=== PATIENT | male | born 1965 | race Caucasian/White ===

== ENCOUNTER 2017-01-24 22:32 | Emergency (ER) | payer OTHER ==
[2017-01-24 22:51] VITALS: BMI 25.4
--- NOTE | 2017-01-25 00:35 | DR.GENAD ---
HPI - PCP Primary Care Physician: LESLI - Complaint/Symptoms Chief Complaint:: BEEN WORKING OUT IN [place] ALL DAY CAME IN HURTING IN UPPER LEFT ABD. AND BACK. CAN'T HARDLY BREATHE. 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 UNSTEADY WHEN STANDING AND WALKING Self Treatment fo Chief Complaint: 2 ALEVE AND 2 IBUPROFEN AT 5PM - Source History Provided: Patient - Mode of Arrival Mode of Arrival: Ambulatory - Timing Onset of Chief Complaint: 01/24/17 PMH - PMH Past Medical History: Yes Past Medical History: Anxiety, COPD, Dyslipidemia, GERD, Hypertension, Kidney Stones Past Surgical History: No - Family History History of Family Medical Conditions: Yes Family Medical History: Coronary Artery Disease, Hypertension - Social History Does patient currently use any type of tobacco product: Yes Type of Tobacco Use: Cigarettes How many years tobacco product used: 30 Does any household member use tobacco: No Alcohol Use: Occasionally Do you use any recreational Drugs:: No Lives With: Spouse Lives Where: Home - infectious screening In the last 2 months have you had wt loss of >10#?: NO Have you had fever, night sweats or hemotysis?: No Have you traveled outside the country in the last 6 months?: No Isolation: Standard ROS - Review of Systems Eyes: No Symptoms Reported ENTM: No Symptoms Reported Respiratoy: No Symptoms Reported Gastrointestinal/Abdominal: No Symptoms Reported Genitourinary: No Symptoms Reported Neurological: No Symptoms Reported Musculoskeletal: No Symptoms Reported Integumentary: No Symptoms Reported Hematologic/Lymphatic: No Symptoms Reported Endocrine: No Symptoms Reported Psychiatric: No Symptoms Reported All Other Systems: Reviewed and Negative PE - Vital Signs Vitals: Temperature 97.9 F Pulse Rate 112 Respiratory Rate 24 Blood Pressure 142/89 O2 Sat by Pulse Oximetry 94 - General Limitations: No Limitations General Appearance: Alert - Head Head Exam: Normal Inspection, Atraumatic - Eyes Eye exam: Normal Appearance, PERRL, EOMI - ENT ENT Exam: Normal Exam External Ear Exam: Normal External Inspection TM/Canal Exam: Bilateral Normal Nose Exam: Normal Nose Exam Mouth Exam: Normal Inspection Throat Exam: Normal Inspection - Neck Neck Exam: Normal Inspection, Full ROM - Chest Chest Inspection: Normal Inspection - Respiratory Respiratory Exam: Normal Lung Sounds Bilat Respiratory Exam: Bilateral Clear to Auscultation - Cardiovascular Cardiovascular Exam: Regular Rate - Abdominal Exam Abdominal Exam: Normal Inspection Abdominal Tenderness: negative: RUQ, RLQ, LUQ, LLQ, Epigastrium, Suprapubic, Diffuse, Mild, Moderate, Severe, Other - Extremities Extremities Exam: Normal Inspection, Full ROM - Back Back Exam: Normal Inspection, Full ROM - Neurologic Neurological Exam: Alert, Oriented X3, CN II-XII Intact - Psychiatric Psychiatric Exam: Normal Affect - Skin Skin Exam: Warm, Dry, Intact Course - Reevaluation 1st: Improved ROR - Labs Reviewed Laboratory Results Reviewed?: Yes (Influenza A, Strep positive) Result Diagrams: 01/25/17 01:06 01/25/17 01:06 Laboratory: WBC 5.9 X10^3/uL (3.6-10.0) 01/25/17 01:06 RBC 3.75 X10^6/uL (4.7-6.0) L 01/25/17 01:06 Hgb 11.0 g/dL (13.5-18.0) L 01/25/17 01:06 Hct 32.3 % (42.0-54.0) L 01/25/17 01:06 MCV 86.1 fL (80.0-100.0) 01/25/17 01:06 MCH 29.3 pg (27.0-34.0) 01/25/17 01:06 MCHC 34.1 g/dL (33.0-35.0) 01/25/17 01:06 RDW 14.6 % (11.6-16.5) 01/25/17 01:06 Plt Count 156 X10^3/uL (150.0-450.0) 01/25/17 01:06 MPV 7.9 fL (7.4-11.0) 01/25/17 01:06 Neut % 80.1 % (42.0-75.0) H 01/25/17 01:06 Lymph % 8.1 % (21.0-51.0) L 01/25/17 01:06 [place] % 7.6 % (0.0-13.0) 01/25/17 01:06 Eos % 3.7 % (0.9-2.9) H 01/25/17 01:06 Baso % 0.5 % (0.2-1.0) 01/25/17 01:06 Neut # 4.7 x10^3/uL (2.2-4.8) 01/25/17 01:06 Lymph # 0.5 X10^3/uL (1.3-2.9) L 01/25/17 01:06 [place] # 0.5 x10^3/uL (0.3-0.8) 01/25/17 01:06 Eos # 0.2 x10^3/uL (0.0-0.2) 01/25/17 01:06 Baso # 0.0 X10^3/uL (0.0-0.1) 01/25/17 01:06 Absolute Nucleated RBC 0.1 /100WBC 01/25/17 01:06 Sodium 138 mmol/L (136-145) 01/25/17 01:06 Corrected Sodium TNP 01/25/17 01:06 Potassium 4.1 mmol/L (3.5-5.1) 01/25/17 01:06 Chloride 101 mmol/L (98-107) 01/25/17 01:06 Carbon Dioxide 28.7 mmol/L (21-32) 01/25/17 01:06 BUN 41 mg/dL (7-18) H 01/25/17 01:06 Creatinine 1.30 mg/dL (0.70-1.30) 01/25/17 01:06 Est GFR (MDRD) Af Amer > 60 (>60) 01/25/17 01:06 Est GFR (MDRD) Non-Af > 60 (>60) 01/25/17 01:06 Glucose 108 mg/dL (65-99) H 01/25/17 01:06 Calcium 9.0 mg/dL (8.5-10.1) 01/25/17 01:06 Corrected Calcium TNP 01/25/17 01:06 Total Bilirubin 0.20 mg/dL (0.2-1.0) 01/25/17 01:06 AST 66 Units/L (15-37) H 01/25/17 01:06 ALT 67 Units/L (12-78) 01/25/17 01:06 Alkaline Phosphatase 74 Units/L (46-116) 01/25/17 01:06 C-Reactive Protein 20.50 mg/L (0-3.0) H 01/25/17 01:06 Total Protein 6.9 g/dL (6.4-8.2) 01/25/17 01:06 Albumin 3.9 g/dL (3.4-5.0) 01/25/17 01:06 Globulin 3.0 g/dL (2.5-4.5) 01/25/17 01:06 Albumin/Globulin Ratio 1.3 Ratio (1.1-2.1) 01/25/17 01:06 Influenza Type A (PCR) Positive (NEGATIVE) A 01/25/17 02:29 Influenza Type B (PCR) Negative (NEGATIVE) 01/25/17 02:29 Streptococcus Screen Positive (NEGATIVE) A 01/25/17 02:29 - XRAY XRAY Interpreted by: Radiologist (Chest: No acute chest process) - Diagnosis Discharge Problem: Influenza A, Strep pharyngitis - Discharge Plan Condition: Stable - Follow ups/Referrals Follow ups/Referrals: ORTIZ BALLESTEROS [Primary Care Provider] - 3 days - Instructions
[2017-01-25 01:18] LABS: BASOPHILS % (AUTO) 0.5 % (0.2-1.0); EOSINOPHILS # (AUTO) 0.2 x10^3/uL (0.0-0.2); EOSINOPHILS % (AUTO) 3.7 % (0.9-2.9); HEMATOCRIT 32.3 % (42.0-54.0); LYMPHOCYTES # (AUTO) 0.5 X10^3/uL (1.3-2.9); LYMPHOCYTES % (AUTO) 8.1 % (21.0-51.0); MEAN CORPUSCULAR HEMOGLOBIN 29.3 pg (27.0-34.0); MEAN CORPUSCULAR HGB CONC 34.1 g/dL (33.0-35.0); MEAN CORPUSCULAR VOLUME 86.1 fL (80.0-100.0); MEAN PLATELET VOLUME 7.9 fL (7.4-11.0); MONOCYTES # (AUTO) 0.5 x10^3/uL (0.3-0.8); MONOCYTES % (AUTO) 7.6 % (0.0-13.0); NEUTROPHILS # (AUTO) 4.7 x10^3/uL (2.2-4.8); NEUTROPHILS % (AUTO) 80.1 % (42.0-75.0); PLATELET COUNT 156 X10^3/uL (150.0-450.0); RED BLOOD COUNT 3.75 X10^6/uL (4.7-6.0); RED CELL DISTRIBUTION WIDTH 14.6 % (11.6-16.5); WHITE BLOOD COUNT 5.9 X10^3/uL (3.6-10.0)
[2017-01-25 01:28] LABS: ALANINE AMINOTRANSFERASE 67 Units/L (12-78); ALBUMIN 3.9 g/dL (3.4-5.0); ALKALINE PHOSPHATASE 74 Units/L (46-116); ASPARTATE AMINO TRANSFERASE 66 Units/L (15-37); BLOOD UREA NITROGEN 41 mg/dL (7-18); CARBON DIOXIDE 28.7 mmol/L (21-32); CHLORIDE 101 mmol/L (98-107); SODIUM 138 mmol/L (136-145); TOTAL PROTEIN 6.9 g/dL (6.4-8.2); eGFR BLACK RACES > 60 (>60); eGFR NON BLACK RACES > 60 (>60)
--- NOTE | 2017-01-25 01:37 | RAD ---
Chest PA and lateral Indication: Chest pain and dyspnea. Findings: There is no pneumothorax or effusion. There is no consolidation. Heart size is normal. Impression: No acute chest process. Reported By:
[2017-01-25] MEDS ORDERED: DECADRON INJ IVP ONE (02:05)
[2017-01-25] MEDS ORDERED: DECADRON INJ IM ONE (02:05)
[2017-01-25] MEDS ORDERED: NS 1000 ML 1,000 ML IV ONE (02:07)
[2017-01-25] MEDS ORDERED: DUONEB 0.5 MG/3 MG NEB SCH (02:15)
[2017-01-25] MEDS ORDERED: DUONEB 0.5 MG/3 MG ONE (02:18)
[2017-01-25] MEDS ORDERED: DECADRON INJ ONE (02:42)
[2017-01-25] MEDS ORDERED: BICILLIN L-A IM ONE ×2 (03:32→03:41)
[2017-01-25 04:10] VITALS: BP 125/78
== END 2017-01-25 04:10 | disposition home or self-care (01) ==
LOC: ER 23:00
DX: J11.1 Influenza due to unidentified influenza virus with other respiratory manifestations (principal); J02.0 Streptococcal pharyngitis
CPT/HCPCS: 36415; 71020; 80053; 85025; 86140; 87502; 87880; 94640; 96365; 96372; 96374; 99283; A4222; J0570; J1100; J7620